=== PATIENT | male | born 1995 | race Caucasian/White ===

== ENCOUNTER 2020-07-19 02:08 | Emergency (ER) | payer SELFPAY ==
[~2020-07-19] VITALS: Ht 180 cm; Wt 81.6 kg
[2020-07-19 02:15] VITALS: BP 170/107
[2020-07-19] MEDS ORDERED: RX-MUPIROCIN (BACTROBAN) 2% OINT 22 GM TUBE TOP STA (02:27)
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
[2020-07-19] MEDS ORDERED: RX-TRIMETH/SULFA. 160-800 MG (BACTRIM DS) TAB PPK#2 PO STA (02:29)
[2020-07-19] MEDS ORDERED: TETANUS,DIPTH,PERTUSS P/F (BOOSTRIX) 0.5 ML VIAL IM ONE (02:30)
[2020-07-19] MEDS ORDERED: RX-HYDROCODONE/APAP 5/325 MG #4 TAB PK PO ONE (02:51)
[2020-07-19] MEDS ORDERED: BISM1BAN TP (02:52)
[2020-07-19] MEDS ORDERED: ACHD5005 PO (02:52)
[2020-07-19] MEDS ORDERED: RX-HYDROCODONE/APAP 5/325 MG #4 TAB PK PO PRN (03:00)
== END 2020-07-19 03:05 | disposition home or self-care (01) ==
LOC: EDUNIT# 02:08 → ER 02:10
DX: T21.23XA Burn of second degree of upper back, initial encounter (principal); T22.251A Burn of second degree of right shoulder, initial encounter; Z23 Encounter for immunization; X08.8XXA Exposure to other specified smoke, fire and flames, initial encounter
CPT/HCPCS: 90715; 99284